=== PATIENT | male | born 1980 ===

== ENCOUNTER 2024-10-18 23:02 | Emergency (ER) | payer OTHER, BC ==
[2024-10-18] MEDS: Acetaminophen 325 MG Tab PO ONE (23:35)
== END 2024-10-19 00:13 | disposition home or self-care (01) ==
LOC: MW.ED 23:02
DX: S40.011A Contusion of right shoulder, initial encounter (principal); S00.01XA Abrasion of scalp, initial encounter; M25.551 Pain in right hip; V49.40XA Driver injured in collision with unspecified motor vehicles in traffic accident, initial encounter
CPT/HCPCS: 71045; 73502; 99284; A9270; 99283